=== PATIENT | male | born 1975 | race Caucasian/White ===

== ENCOUNTER 2017-10-02 18:43 | Emergency (ER) | payer OTHER ==
[~2017-10-02] VITALS: Ht 188 cm; Wt 121.1 kg
[~2017-10-02 18:43] MED LIST: BACTROBAN NASAL1 GM NS; CARISOPRODOL 3350 MG PO; CLEOCIN HCL300 MG PO; DOXYCYCLINE 10100 MG PO; DOXYCYCLINE HY100 M3 PO; FLEXERIL PO; HIBICLENS120 ML TP; KEFLEX500 MG PO; NAPROSYN500 MG PO; NOHOMEMEDICATIONS; NORCO 5-325 TA1 EACH PO; TRAMADOL 50 MG50 MG PO; ULTRAM 50MG TAB50 MG PO; VICODIN 5-5001 EACH PO
[2017-10-02] MEDS ORDERED: IBUPROFEN 800800 MG PO (19:06)
[2017-10-02] MEDS ORDERED: AMOXICILLIN 50500 MG PO (19:06)
[2017-10-02] MEDS ORDERED: NORCO 5-325 TA1 EACH PO (19:06)
[2017-10-02 19:12] VITALS: BP 151/85
== END 2017-10-02 19:16 | disposition home or self-care (01) ==
LOC: M.ERS 18:43
DX: K08.89 Other specified disorders of teeth and supporting structures (principal); F17.210 Nicotine dependence, cigarettes, uncomplicated; F10.99 Alcohol use, unspecified with unspecified alcohol-induced disorder; Z86.14 Personal history of Methicillin resistant Staphylococcus aureus infection

== ENCOUNTER 2019-12-27 14:48 | Emergency (ER) | payer OTHER ==
[~2019-12-27] VITALS: Ht 188 cm; Wt 133.4 kg
[~2019-12-27 14:48] MED LIST changes: +AMOXICILLIN 50500 MG PO; +IBUPROFEN 800800 MG PO
[2019-12-27] MEDS ORDERED: PAIN RELIEVER325 MG PO (15:10)
[2019-12-27] MEDS ORDERED: DAY TIME COLD-1 EACH PO (15:11)
[2019-12-27 16:00] VITALS: BP 146/83
[2019-12-27 16:00] LABS: INFLUENZA A ANTIGEN Negative (Negative); INFLUENZA B ANTIGEN Negative (Negative)
== END 2019-12-27 16:00 | disposition home or self-care (01) ==
LOC: M.ERS 14:48
PROVIDERS: Physician Assistant
DX: J06.9 Acute upper respiratory infection, unspecified (principal); F17.210 Nicotine dependence, cigarettes, uncomplicated; Z86.14 Personal history of Methicillin resistant Staphylococcus aureus infection